=== PATIENT | male | born 1970 | race Caucasian/White ===

== ENCOUNTER 2019-08-29 20:23 | Outpatient (CLI) | payer MEDICARE | END 2019-08-29 20:24 | disposition short-term general hospital (02) | LOC: EMS 20:23 | PROVIDERS: ATTEND Surgery | DX: R07.9 Chest pain, unspecified (principal); R11.0 Nausea; R42 Dizziness and giddiness | CPT/HCPCS: A0425; A0427 ==

== ENCOUNTER 2020-04-20 03:05 | Outpatient (CLI) | payer MEDICARE | END 2020-04-20 03:06 | disposition EMS.NT | LOC: EMS 03:05 | PROVIDERS: ATTEND Surgery | DX: R51 Headache (principal); R31.9 Hematuria, unspecified ==

== ENCOUNTER 2020-07-28 08:18 | Emergency (ER) | payer MEDICARE ==
[2020-07-28 08:39] VITALS: BP 137/98
--- NOTE | 2020-07-28 08:40 | ED Physician Documentation ---
PD HPI UPPER EXT INJURY - Stated complaint Stated Complaint: R HAND INJURY - Chief complaint Chief Complaint: Ext Problem - History obtained from History obtained from: Patient - History of Present Illness Location: Right, Hand Type of injury: Fall (states struck top of hand and it bent forcefully in flexion and struck the dorsum on hand on the ground. Swelling at base of 5th MC area.) Timing - onset: Today (shortly [facility]) Timing - details: Abrupt onset, Still present Improved by: Rest Worsened by: Moving, Palpating Associated symptoms: Weakness (pain and weakness for movement of little and ring fingers. Swelling at base of 5th MC area.), Swelling. No: Numbness Similar symptoms before: Has not had sx before Recently seen: Not recently seen Review of Systems Constitutional: denies: Fever, Chills Nose: denies: Rhinorrhea / runny nose, Congestion Throat: denies: Sore throat Respiratory: denies: Cough Skin: denies: Abrasion (s), Laceration (s) Musculoskeletal: reports: Extremity swelling (just the right hand) PD PAST MEDICAL HISTORY - Past Medical History Cardiovascular: Hypertension, High cholesterol - Past Surgical History Past Surgical History: Yes General: Appendectomy, EGD - Present Medications Home Medications: Ambulatory Orders Medication Instructions Recorded Confirmed Hydrocodone/Acetaminophen [Mode 1 each PO Q6H PRN #15 tablet 07/28/20 5-325 Tablet] Ibuprofen [Motrin] 600 mg PO TID PRN #25 tab 07/28/20 - Allergies Allergies/Adverse Reactions: Allergies Allergy/AdvReac Type Severity Reaction Status Date / Time iv dye AdvReac Intermediate Headache Uncoded 07/28/20 08:40 - Social History Does the pt smoke?: Yes Smoking Status: Current every day smoker Does the pt drink ETOH?: No Does the pt have substance abuse?: Yes - Immunizations Immunizations are current?: Yes - POLST Patient has POLST: No PD ED PE NORMAL - Vitals Vital signs reviewed: Yes - General General: Alert and oriented X 3, Well developed/nourished, Other (appears in pain. Drove self here. ) - Derm Derm: Normal color, Warm and dry - Extremities Extremities: Other (right hand with swelling and marked tenderness at base of 5th MC area. Limited ROM of the little and ring fingers due to pain. Normal sensation to touch and sharp. ) - Neuro Neuro: Alert and oriented X 3, No motor deficit, No sensory deficit, Other (good color and cap rfill in fingers. ) Results - Vitals Vitals: Vital Signs - 24 hr 07/28/20 08:37 Temperature 36.3 C L Heart Rate 94 Respiratory 16 Rate Blood Pressure 137/98 H O2 Saturation 98 Oxygen O2 Source Room air - Rads (name of study) right hand Radiology: Prelim report reviewed (prior injury of 5th MC noted; no appearance of acute fracture), EMP read contemporaneously (I think there is some avulsion fracture at the dorsal aspect of the hamate. Will splint for possibility.), See rad report Procedures - Splint (location) right ulnar gutter Splint applied by: Tech Type of splint: Fiberglass, Ulnar gutter Other: Patient tolerated well, No complications, Neurovascular intact PD MEDICAL DECISION MAKING - ED course Complexity details: reviewed results (Rad report no fractures. I question some deformity of hamate on oblique view. Can splint for degree of pain to it, whether sprain or small fracture. ), considered differential, d/w patient Departure - Departure Disposition: 01 Home, Self Care Clinical Impression: Hand sprain Qualifiers: Encounter type: initial encounter Laterality: right Qualified Code(s): S63.91XA - Sprain of unspecified part of right wrist and hand, initial encounter Condition: Stable Record reviewed to determine appropriate education?: Yes Instructions: ED Sprain Hand Follow-Up: Sean Melvin MD [Provider Admit Priv/Credential] - Prescriptions: Ibuprofen [Motrin] 600 mg PO TID PRN #25 tab PRN Reason: Pain Hydrocodone/Acetaminophen [Mode 5-325 Tablet] 1 each PO Q6H PRN #15 tablet PRN Reason: Pain Comments: Keep the splint on until follow-up. Call today for an appointment with orthopedics for next week. That will allow time for the swelling to go down and initial healing and see how much better it is feeling. The radiologist read the x-ray as no fractures. They can reassess it next week with orthopedics as well. Even sprained, hurting this much with swelling will still benefit from the splint. Anti-inflammatory such as ibuprofen 3 times a day with food and to that add Tylenol or hydrocodone if needed for pain. Discharge Date/Time: 07/28/20 10:20
[2020-07-28] MEDS ORDERED: HYDROcod/ACETAM 5/325 MG TABLET PO STA (09:04)
[2020-07-28] MEDS ORDERED: ACETAMINOPHEN 325 MG TABLET PO STA (09:04)
--- NOTE | 2020-07-28 09:05 | XRAY Report ---
PROCEDURE: Hand 3 View RT INDICATIONS: GLF onto hand, swelling pain TECHNIQUE: 3 views of the hand(s) acquired. COMPARISON: None FINDINGS: Bones: There is deformity of the shaft of the fifth metacarpal which has the appearance of remote fra cture. No acute fractures or dislocations are identified. Degenerative change at the first MCP joint. Soft tissues: No suspicious soft tissue calcifications. Medial soft tissue swelling in the region of the fifth metacarpal shaft. IMPRESSION: Deformity of the fifth metacarpal shaft most likely represents sequelae of previous trauma. No acute fractures are identified. Reviewed by: Fiazan Alcantar MD on 07/28/2020 9:03 AM PDT Approved by: Faizan Alcantar MD on 07/28/2020 9:03 AM PDT Station ID: [id number]
== END 2020-07-28 10:20 | disposition home or self-care (01) ==
LOC: ED 08:18
DX: S63.91XA Sprain of unspecified part of right wrist and hand, initial encounter (principal); W01.0XXA Fall on same level from slipping, tripping and stumbling without subsequent striking against object, initial encounter; I10 Essential (primary) hypertension; F17.200 Nicotine dependence, unspecified, uncomplicated
CPT/HCPCS: 29125; 73130; 99283; A9270

== ENCOUNTER 2020-08-22 07:36 | Outpatient (CLI) | payer MEDICARE ==
--- NOTE | 2020-08-22 16:51 | CT Report ---
PROCEDURE: UPPER EXTREMITY WO - RT INDICATIONS: RT WRIST JOINT PAIN TECHNIQUE: Noncontrast 3 mm axial sections acquired of the wrist, with coronal and sagittal reformats. COMPARISON: X-ray 07/28/2020. FINDINGS: Image quality: Excellent. Bones: There is a comminuted fracture of the hamate with extension to the fourth and fifth carpometa carpal joints. There is a coronal cleavage plane within the hamate with associated mild proximal disp lacement of the bases of the fourth and fifth metacarpals. There is a suspected small nondisplaced fr acture at the base of the fifth metacarpal. There is also a suspected nondisplaced impaction fracture at the base of the fourth metacarpal. Remaining visualized osseous structures appear intact. Soft tissues: There is particular soft tissue swelling along the fourth and fifth carpometacarpal betito ints. Mild callus formation is demonstrated along the volar aspect of the base of the fifth metacarpa l. Visualized flexor and extensor tendons appear grossly intact. IMPRESSION: 1. Comminuted fracture of the hamate with involvement of the fourth and fifth carpometacarpal joints. There is associated proximal displacement of the bases of the fourth and fifth metacarpals. 2. Suspected nondisplaced impaction fractures at the bases of the fourth and fifth metacarpals. Reviewed by: Carlo Alonso MD on 08/22/2020 4:50 PM PDT Approved by: Carlo Alonso MD on 08/22/2020 4:50 PM PDT Station ID: [id number]
== END 2020-08-22 07:37 | disposition home or self-care (01) ==
LOC: DI 07:36
PROVIDERS: ATTEND Physician Assistant
DX: S62.141A Displaced fracture of body of hamate [unciform] bone, right wrist, initial encounter for closed fracture (principal); S62.344A Nondisplaced fracture of base of fourth metacarpal bone, right hand, initial encounter for closed fracture; S62.346A Nondisplaced fracture of base of fifth metacarpal bone, right hand, initial encounter for closed fracture

== ENCOUNTER 2020-09-21 07:22 | Outpatient (CLI) | payer MEDICARE, MEDICAID ==
--- NOTE | 2020-09-21 18:05 | XRAY Report ---
PROCEDURE: Wrist 3 View RT INDICATIONS: RIGHT HAMATE FRACTURE TECHNIQUE: 3 views of the wrist were acquired. COMPARISON: CT scan 08/22/2020 and plain from radiographs 07/28/2004 FINDINGS: Bones: Comminuted hamate fracture is redemonstrated, although fracture is not well visualized by plai n from radiograph. No definite healing identified. No suspicious bony lesions. Soft tissues: No suspicious soft tissue calcifications. IMPRESSION: Comminuted hamate fracture redemonstrated. Reviewed by: Una Guadalupe MD, PhD on 09/21/2020 6:04 PM PDT Approved by: Una Guadalupe MD, PhD on 09/21/2020 6:04 PM PDT Station ID: [id number]
== END 2020-09-21 23:59 | disposition home or self-care (01) ==
LOC: DI.WCP 07:22
PROVIDERS: ATTEND Physician Assistant
DX: S62.141 Displaced fracture of body of hamate [unciform] bone, right wrist (principal)